=== PATIENT | male | born 1970 | race Caucasian/White ===

== ENCOUNTER 2023-07-24 22:34 | Emergency (ER) | payer BC, SELFPAY ==
[2023-07-24 22:36] VITALS: BP 118/89; PULSE 61; RESP 18; TEMP 36.6; O2SAT 98
--- NOTE | 2023-07-24 23:10 | EKG12_ITS ---
Test Reason : DYSRHYTHMIA Blood Pressure : / mmHG Vent. Rate : 068 BPM Atrial Rate : 068 BPM P-R Int : 174 ms QRS Dur : 106 ms QT Int : 408 ms P-R-T Axes : 044 014 029 degrees QTc Int : 433 ms Normal sinus rhythm Incomplete right bundle branch block Borderline ECG Confirmed by ZEE DIALLO, TANMAY ([id number]), field map editor JAIDEN CRUMP ([id number]) on 07/26/2023 9:54:47 AM Referred By: LANE Confirmed By:ANKUSH KOCH MD
--- NOTE | 2023-07-24 23:11 | CT_ITS ---
INDICATION: confusion EXAMINATION: CT BRAIN - CT Head or Brain W/O Contrast Injection TECHNIQUE: Multiple axial images were obtained of the head without intravenous contrast. The protocol utilizes one or more of the following dose reduction techniques: automated exposure control, adjustment of mA and/or kV according to patient size,and/or use of iterative reconstruction technique. IV Contrast dosage and agent: None. RADIATION DOSAGE (If Supplied By Facility): CTDIvol = ( 44.99 ) mGy, DLP = ( 812.98 ) mGycm COMPARISON: None. FINDINGS: BRAIN: No acute bleed. No edema. Reed-white matter differentiation is maintained. VENTRICLES AND SULCI: Not dilated. EXTRA-AXIAL: No hemorrhage, fluid collection, or mass. CALVARIUM / SKULL BASE: Unremarkable. FACE/SINUSES: Mucosal thickening in the maxillary and frontal sinuses. SOFT TISSUES: Unremarkable. CT/Brain/Head without Contrast IMPRESSION: No acute abnormality. CT angiogram and/or MRI may be helpful to evaluate for acute infarct as clinically indicated. Electronically Signed: Yesika Barajas MD at 0:24 EDT ,
--- NOTE | 2023-07-24 23:11 | EDS_ITS ---
HPI History of Present Illness Chief Complaint: Confusion Informant: patient, friend (x2) and EMS Narrative Narrative: Patient brought by EMS, friends called because he was acting funny today. Patient is from [place], he and friends that he is with are barbecuing out at a local [place] all day today outside. The patient had chest tightness nonpleuritic all day with discomfort in his left arm and he kept shaking his arm as if it was tingling or numb and bothering him according to the friend. Patient states he is asymptomatic right now and it went away a couple hours ago but it was there all day, presenting here at about 11 PM. He does not have a history of heart problems and does not usually have chest discomfort. The friends were more concerned because he was not recognizing people that he has known for a long time which is very unlike him, and according to the patient he did not seem disoriented but did not remember some events from the day which friends agree with. Patient states he has been drinking beers off-and-on all day he has had a total of 8, and he smokes cigarettes. He smokes marijuana off-and-on the last time he smoked it was last night. He does not do any other drugs intentionally. PFSH PFSH Medical History no medical history no medical history Home Medications ?Medication ?Instructions ?Recorded ?Last Taken ?Type NK 07/24/23 Unknown History Allergy/AdvReac Type Severity Reaction Status Date / Time No Known Allergies Allergy Verified 07/24/23 22:40 Surgical History no surgical history Social History (Updated 07/24/23 @ 23:[address] Grayson Garcia MD) Smoking Status: Current every day smoker tobacco type: cigarettes alcohol intake: current substance use type: marijuana ROS ROS ED Constitutional Constitutional ED: Denies chills or fever(s) Eyes Eyes: Denies change in vision or diplopia ENT ENT ED: Denies rhinorrhea or sore throat Cardiovascular Cardiovascular: Reports chest pain and radiating jaw, neck or arm pain; Denies palpitations or syncope Respiratory/Chest Respiratory/Chest: Denies cough or dyspnea Gastrointestinal Gastrointestinal: Denies abdominal pain, diarrhea, nausea or vomiting Genitourinary Genitourinary ED: Denies dysuria or hematuria Musculoskeletal Musculoskeletal: Denies back pain or neck pain Integumentary Denies abscess or rash Neurologic Neurologic: Reports other Details: short term amnesia today ; Denies headache(s), paresthesias or weakness Psychiatric Psychiatric: Denies anxiety or suicidal thoughts EXAM Physical Exam Const Vital Signs: 07/24/23 22:36 07/24/23 23:22 07/25/23 00:35 Temperature 97.8 F Temperature Source Oral Pulse Rate 61 88 Respiratory Rate 18 13 Blood Pressure 118/89 H 98/67 Blood Pressure Mean 98 77 Pulse Ox 98 96 Oxygen Delivery Method Room Air Room Air Room Air Positive well nourished and well developed General Appearance ED: well developed and NAD HEENT Reports moist mucous membranes normocephalic and atraumatic Eyes PERRL and EOMs intact bilaterally Neck full ROM and supple Resp normal respiratory effort and clear to auscultation bilaterally Cardio regular rate, regular rhythm and no murmurs GI non-tender and non-distended Auscultation: normoactive bowel sounds Palpation: soft Back/Spine no CVA tenderness General Back: other FROM Extremity normal to inspection General Extremety ED: Negative for edema, pulses abnormal or tenderness General Extremity: Negative for edema or pulses abnormal Neuro oriented x3, CN's II-XII intact bilaterally and no sensory deficits noted Sensorium / Orientation: awake and alert Motor Exam: strength 5/5 throughout Psych mental status grossly normal Skin no rashes or lesions noted and no wounds MDM MDM MDM Narrative Medical decision making narrative: Differential includes infectious etiology, metabolic etiology, toxic etiology, he was amenable to doing a drug screen to make sure he did not use anything unintentionally given marijuana he was smoking, it is negative. His alcohol level is 160, and other than some mild prerenal azotemia the rest of his testing is normal. CT of the head was performed to rule out [employer] etiologies it was negative, I reviewed the images and the report and I agree with that. Chest x- ray normal. EKG normal. Troponin normal after having chest discomfort all day, so given that it is less than 3, he probably was not having unstable angina all day. He feels well. Family comfortable taking him home. They did note that he was standing around a hot grill in the hot sun all day drinking beer, everyone was sweating except for him, I suspect this was all probably relatively dehydrated, mix with alcohol that was causing this, encouraged to drink fluids family is comfortable taking him home, if he is still having memory issues or other symptoms of delirium tomorrow or the next day to follow-up with his doctor. They are comfortable with that plan. History & Record Review Discussion w/independent historian: Family (multiple) and Friend Lab Data Attestation: I reviewed the patient's lab results. Labs: Laboratory Results - last 24 hr 07/24/23 23:13 WBC 8.9 RBC 4.76 Hgb 15.0 Hct 44.1 MCV 92.6 MCH 31.5 MCHC 34.0 RDW Std Deviation 47.0 H RDW Coeff of Karol 13.8 Plt Count 238 MPV 8.9 Immature Gran % (Auto) 0.200 Neut % (Auto) 34.4 L Lymph % (Auto) 33.5 [place] % (Auto) 7.1 Eos % (Auto) 23.8 H Baso % (Auto) 1.0 Absolute Neuts (auto) 3.1 Absolute Lymphs (auto) 2.99 Nucleated RBC % 0 Differential Comment SCANNED Sodium 140 Potassium 3.6 Chloride 109 H Carbon Dioxide 21.0 Anion Gap 10 BUN 18 Creatinine 0.98 Est GFR (MDRD) Af Amer 103 Est GFR (MDRD) Non-Af 85 BUN/Creatinine Ratio 18.5 Glucose 90 Calcium 8.6 Troponin I High Sens < 3 L Urine Opiates Screen NEGATIVE Urine Methadone Screen NEGATIVE Ur Barbiturates Screen NEGATIVE Ur Phencyclidine Scrn NEGATIVE Ur Amphetamines Screen NEGATIVE MDMA (Ecstasy) Screen NEGATIVE U Benzodiazepines Scrn NEGATIVE Urine Cocaine Screen NEGATIVE U Cannabinoids Screen NEGATIVE Ur Drug Screen Comment Ethyl Alcohol 160.0 Radiography Diagnostic Testing: Clinical Impression(s) from Imaging Studies Brain CT 07/24/23 23:11 IMPRESSION: No acute abnormality. CT angiogram and/or MRI may be helpful to evaluate for acute infarct as clinically indicated. Electronically Signed: Yesika Barajas MD at 0:24 EDT , Chest X-Ray 07/24/23 23:45 IMPRESSION: No evidence of active intrathoracic disease. Electronically Signed: Yesika Barajas MD at 0:21 EDT , Rhythm Strip Rhythm Strip: Sinus Rhythm Rate: 70 Ectopy: None EKG Initial EKG: Attestation: I personally reviewed and interpreted this EKG as follows: Interpretation: Sinus Rhythm and No Acute Injury Pattern Comments: RSR' Prior EKG tracings: not available for review Prior: No Prior Discharge Plan Triage Chief Complaint: Confusion ED Provider: Grayson Garcia Dx/Rx/DC Orders Clinical Impression: Alcohol intoxication, Mild dehydration, Temporary amnesia Instructions: ED Confusion Prescriptions: No Action NK Primary Care Provider: Care Physician,No Primary Referrals: Doctor,Your [Non-Staff] - 1-2 Days if not improving (drink non-alcoholic fluids tonight and tomorrow) Print Language: German Disposition Disposition: Home, Self Care
[2023-07-24] MEDS: Aspirin 81 MG TAB.CHEW 324 MG PO (23:25)
[2023-07-24 23:28] LABS: Absolute Lymphocyte Count 2.99 X10^3/uL (0.83-4.51); Absolute Neutrophil Count 3.1 X10^3/uL (2.0-7.7); Basophil# 0.09 X10^3/uL; Eosinophil# 2.12 X10^3/uL; Eosinophils% 23.8 % (0-5); Hematocrit 44.1 % (40-54); Lymphocyte # 2.99 X10^3/ul (0.83-4.51); Lymphocyte % 33.5 % (19-41); Mean Corpuscular Hgb 31.5 pg (27.0-32.0); Mean Corpuscular Volume 92.6 fL (80-94); Mean Platelet Vol. 8.9 fl (6.2-12.0); Monocyte# 0.63 X10^3/uL; Monocyte% 7.1 % (0-10); NRBC Flagged by Analyzer 0 % (0-5); Neutrophil # 3.07 X10^3/uL (2.7-7.7); Neutrophil % 34.4 % (47-70); POSITIVE DIFFERENTIAL YES; POSITIVE MORPHOLOGY YES; Platelet Count 238 K/mm3 (150-450); RBC Distribution Width CV 13.8 % (11.6-14.6); Red Blood Count 4.76 M/mm3 (4.6-6.2); White Blood Count 8.9 K/mm3 (4.4-11.0)
[2023-07-24 23:38] LABS: Differential Indicated SCAN CRITERIA MET
[2023-07-24 23:43] LABS: Amphetamine Urine VISTA NEGATIVE (<1000 ng/mL); Barbiturate Urine VISTA NEGATIVE (< 200 ng/mL); Benzodiazepine Urine VISTA NEGATIVE (< 200 ng/mL); Cocaine Urine VISTA NEGATIVE (< 300 ng/mL); Ecstacy Urine VISTA NEGATIVE (< 500 ng/mL); Methadone Urine VISTA NEGATIVE (< 300 ng/mL); PCP Urine VISTA NEGATIVE (< 25 ng/mL); THC Urine VISTA NEGATIVE (< 50 ng/mL); Vista UDS pH Range 5
[2023-07-24 23:45] LABS: Anion Gap 10 (5-15); BUN 18 mg/dL (7-18); BUN/Creat Ratio 18.5 RATIO (10-20); Calcium,Total 8.6 mg/dL (8.5-10.1); Chloride 109 mmol/L (98-107); Creatinine, Serum 0.98 mg/dL (0.70-1.30); EST Glomerular Filtration Rate 85 mL/min (>60); Est Glom Filt Rate - Afr Amer 103 mL/min (>60); Glucose 90 mg/dL (74-106); Potassium 3.6 mmol/L (3.5-5.1); Sodium Level 140 mmol/L (136-145); Troponin-I HS < 3 pg/mL (3.0-78.0)
--- NOTE | 2023-07-24 23:45 | RAD_ITS ---
INDICATION: chest pain EXAMINATION/TECHNIQUE: X-RAY - XR Chest 1 View AP portable. 11:41 PM COMPARISON: None. FINDINGS: LINES/DEVICES: None. LUNGS: No consolidation. No pneumothorax. MEDIASTINUM: Unremarkable. CARDIAC SILHOUETTE: Not enlarged. BONES AND SOFT TISSUES: No acute abnormalities. RAD/Chest 1 View (Portable) IMPRESSION: No evidence of active intrathoracic disease. Electronically Signed: Yesika Barajas MD at 0:21 EDT ,
[2023-07-25 00:34] LABS: Differential Comment SCANNED
[2023-07-25 00:35] VITALS: BP 98/67; PULSE 88; RESP 13; O2SAT 96
[2023-07-25 01:09] VITALS: BP 97/69; PULSE 78; RESP 21; TEMP 36.5; O2SAT 95
== END 2023-07-25 01:09 | disposition home or self-care (01) ==
PROVIDERS: Emergency Provider Emergency Medicine; Visit Provider Emergency Medicine
DX: F10.129 Alcohol abuse with intoxication, unspecified (principal); E86.0 Dehydration; F17.210 Nicotine dependence, cigarettes, uncomplicated; R41.3 Other amnesia; R07.9 Chest pain, unspecified
CPT/HCPCS: 70450; 71045; 80048; 80307; 80320; 84484; 85025; 93005; 99284; A4216; G0480